=== PATIENT | female | born 1995 | race Caucasian/White ===

== ENCOUNTER 2020-12-24 13:00 | Outpatient (CLI) | payer OTHER ==
[2020-12-24 14:50] LABS: HEMOGLOBIN 13.5 gm/dl (12.3-15.3); RED BLOOD COUNT 4.07 M/UL (4.00-5.10); WHITE BLOOD COUNT 10.1 K/UL (4.5-11.0)
[2020-12-24 15:17] LABS: BUN/CREATININE RATIO 12 (0-10)
[2020-12-25 15:13] LABS: URINE TOTAL PROTEIN 246 mg/dl
== END 2020-12-26 09:17 | disposition home or self-care (01) ==
LOC: GENOP 13:00
PROVIDERS: Obstetrics & Gynecology
DX: O62.9 Abnormality of forces of labor, unspecified (principal); O12.03 Gestational edema, third trimester; O99.513 Diseases of the respiratory system complicating pregnancy, third trimester; R06.2 Wheezing; Z20.822 Contact with and (suspected) exposure to COVID-19; Z3A.32 32 weeks gestation of pregnancy
CPT/HCPCS: 59025; 80053; 81001; 82570; 82731; 84156; 84550; 85025; 96372; J0702; U0002

== ENCOUNTER 2020-12-26 18:41 | Outpatient (CLI) | payer OTHER | END 2020-12-26 20:34 | disposition home or self-care (01) | LOC: GENOP 18:41 | DX: O26.893 Other specified pregnancy related conditions, third trimester (principal); R03.0 Elevated blood-pressure reading, without diagnosis of hypertension; R51.9 Headache, unspecified; Z3A.32 32 weeks gestation of pregnancy | CPT/HCPCS: G0463 ==

== ENCOUNTER 2020-12-27 12:33 | Observation (INO) | payer OTHER ==
[~2020-12-27] VITALS: Ht 154.9 cm; Wt 97.5 kg
[2020-12-27 13:24] LABS: HEMOGLOBIN 12.5 gm/dl (12.3-15.3); RED BLOOD COUNT 3.82 M/UL (4.00-5.10)
[2020-12-27 13:29] LABS: WHITE BLOOD COUNT 13.9 K/UL (4.5-11.0)
[2020-12-27 13:44] LABS: BUN/CREATININE RATIO 16 (0-10)
== END 2020-12-27 16:39 | disposition short-term general hospital (02) ==
LOC: GENOP 12:33 → OB 12:54
PROVIDERS: ADMIT Obstetrics & Gynecology
DX: O14.03 Mild to moderate pre-eclampsia, third trimester (principal); O26.893 Other specified pregnancy related conditions, third trimester; R51.9 Headache, unspecified; O99.333 Smoking (tobacco) complicating pregnancy, third trimester; F17.290 Nicotine dependence, other tobacco product, uncomplicated; Z3A.32 32 weeks gestation of pregnancy; Z88.0 Allergy status to penicillin; Z88.5 Allergy status to narcotic agent; Z79.899 Other long term (current) drug therapy
CPT/HCPCS: 36415; 51702; 80053; 81001; 82570; 84156; 84550; 85025; 96360; 96361; 96365; 96366; G0378; J3475; J7120